=== PATIENT | male | born 1950 | race Caucasian/White ===

== ENCOUNTER → 2016-11-30 | Outpatient (CLI) | payer OTHER ==
[~2016-11-30] MED LIST: AMARYL PO; AMLODIPINE BESYL5 MG PO; ARTHRITIS PAIN650 M4 PO; ASPIRIN81 M2 PO; CLARITIN-D1 TAB 12 H PO; GLUCOPHAGE500 M1 PO; JANUVIA PO; LANTUS SOLOSTAR3 ML; LIPITOR40 MG PO; MULTI VITAMIN1 EACH PO; PRINIVIL40 MG PO; TRAMADOL HCL50 M2 PO
--- NOTE | ~2016-11-30 | CT127 ---
[facility] A Service of [facility] RADIOLOGY TEXT RESULTS PATIENT: PEPE ROJAS LOCATION: [facility] : 54 UNIT #: [id number] AGE: [address]: Rajat Francois MD SEX: M ORDER DR: [id number] [facility]. [place], [place] [address] [id number] MR#: [id number] Acc #: [id number] NAME: PEPE ROJAS : 1950 SEX: M STUDY DATE/TIME: 11/30/2016 9:29 UNIT: [facility] ROOM: STUDY DESCRIPTION: CT Upper Ext Lt Wo Cont Attending Physician: Rajat Francois M.D. Referring Physician: Rajat Francois M.D. Ordering Physician: Rajat Francois M.D. Primary Care Physician: Ian Cowan M.D. MEDICAL IMAGING REPORT This report is preliminary unless electronic signature is present EXAM CT left shoulder. HISTORY 66-year-old male; preoperative evaluation for shoulder surgery. Injured shoulder 25 years ago. FINDINGS Images were performed of the left hip shoulder utilizing the BLUEPRINT/Tornier protocol. Examination demonstrates moderately advanced glenohumeral joint osteoarthritis with large inferiorly-directed humeral head osteophyte. Mild AC joint arthropathy. No joint effusion. Evaluation of the rotator cuff limited, but no evidence of rotator cuff muscle atrophy, and the rotator cuff appears grossly intact. No significant joint effusion. Suspected several loose bodies along the biceps tendon sheath. Visualized left thorax is unremarkable. IMPRESSION Moderately advanced glenohumeral joint osteoarthritis of the left shoulder. Suspected loose bodies along the biceps tendon sheath measure up to 7 mm. Dictated by... Braulio Pena M.D. THIS IS AN ELECTRONICALLY VERIFIED REPORT Braulio Pena M.D. at 12/02/2016 7:26 AM CR/conner TD: 12/01/2016 11:54 JOB #: [id number] [facility] A Service of [facility] RADIOLOGY TEXT RESULTS PATIENT: PEPE ROJAS LOCATION: [facility] #: [id number] : 54 UNIT #: [id number] AGE: [address]: Rajat Francois MD SEX: M ORDER DR: MEDICAL IMAGING REPORT Page 1 of 1 COPY
== END | disposition home or self-care (01) ==
LOC: CCAT 08:42
DX: Z01.818 Encounter for other preprocedural examination (principal); M19.012 Primary osteoarthritis, left shoulder
CPT/HCPCS: 73200